=== PATIENT | male | born 1990 | race African-American/Black ===

== ENCOUNTER 2022-10-11 01:54 | Emergency (ER) | payer SELFPAY ==
[2022-10-11] MEDS ORDERED: Lisinopril 10 MG TAB ONE (02:21)
== END 2022-10-11 02:25 | disposition home or self-care (01) ==
LOC: NAV ERS 01:54
DX: I10 Essential (primary) hypertension (principal); J45.909 Unspecified asthma, uncomplicated; F17.210 Nicotine dependence, cigarettes, uncomplicated
CPT/HCPCS: 99283